=== PATIENT | female | born 1940 | race Caucasian/White ===

== ENCOUNTER 2016-12-15 18:56 | Emergency (ER) | payer OTHER ==
--- NOTE | ~2016-12-15 | EKG ---
PATIENT: ANN GUEVARA UNIT #: [id number] Ventricular Rate: 80 BPM Atrial Rate: 80 BPM P-R Interval: 144 ms QRS Duration: 96 ms Q-T Interval: 382 ms QTC Calculation(Bezet): 440 ms P [place]: 48 degrees Calculated R [place]: -37 degrees Calculated T [place]: 11 degrees Diagnosis Line: Normal sinus rhythm Diagnosis Line: Left axis deviation Diagnosis Line: Moderate voltage criteria for LVH, may be normal Diagnosis Line: variant Diagnosis Line: Abnormal ECG Diagnosis Line: When compared with ECG of 05-SEP-2013 05:57, Diagnosis Line: No significant change was found Diagnosis Line: Confirmed by LINDA MATTHEWS MD ([id number]) on 12/15/2016 Diagnosis Line: 10:50:07 PM INTERPRETING MD: CASSIE CERVANTES
--- NOTE | ~2016-12-15 | CR72 ---
[facility] A Service [facility] RADIOLOGY TEXT RESULTS PATIENT: ANN GUEVARA LOCATION: [facility] : 38 UNIT #: [id number] AGE: [address]: Krysten Dupree MD SEX: F ORDER DR: [id number] [facility] [place], [place] [address] [id number] E MR#: [id number] Acc #: [id number] NAME: ANN GUEVARA. : 1940 SEX: F STUDY DATE/TIME: 12/15/2016 18:36 UNIT: [facility] ROOM: STUDY DESCRIPTION: CR Chest Single View Portable Attending Physician: Krysten Dupree M.D. Ordering Physician: Krysten Dupree M.D. Primary Care Physician: Eliecer Collins M.D. MEDICAL IMAGING REPORT This report is preliminary unless electronic signature is present EXAM Frontal chest. DATE OF EXAM 12/15/2016 INDICATIONS 76-year-old female with weakness, confusion, shortness of air for 2 months. REPORT Frontal chest. COMPARISON Compared with 09/04/2013. FINDINGS Cardiac silhouette is within normal limits. The vascularity is unremarkable. There is old healed granulomatous disease and the lungs are hyperinflated. No pneumothorax. IMPRESSION 1. Pulmonary hyperinflation and old healed granulomatous disease. No definite superimposed active disease. Dictated by... Chencho Muro M.D. THIS IS AN ELECTRONICALLY VERIFIED REPORT Chencho Muro M.D. at 12/16/2016 7:28 AM PILI/tej TD: 12/15/2016 21:05 [facility] A Service [facility] RADIOLOGY TEXT RESULTS PATIENT: ANN GUEVARA LOCATION: [facility] : 38 UNIT #: [id number] AGE: [address]: Krysten Dupree MD SEX: F ORDER DR: JOB #: [id number] MEDICAL IMAGING REPORT Page 1 of 1 COPY
--- NOTE | ~2016-12-15 | CT71 ---
[facility] A Service of [facility] RADIOLOGY TEXT RESULTS PATIENT: ANN GUEVARA LOCATION: [facility] : 38 UNIT #: [id number] AGE: [address]: Krysten Dupree MD SEX: F ORDER DR: [id number] [facility] [address] [facility]. [address] [id number] MR#: [id number] Acc #: [id number] NAME: NAN GUEVARA : 1940 SEX: F STUDY DATE/TIME: 12/15/2016 18:18 UNIT: [facility] ROOM: STUDY DESCRIPTION: CT Head Wo Contrast Attending Physician: Krysten Dupree M.D. Ordering Physician: Krysten Dupree M.D. Primary Care Physician: Eliecer Collins M.D. MEDICAL IMAGING REPORT This report is preliminary unless electronic signature is present EXAM Head CT, no contrast. DATE OF EXAM 12/15/2016 INDICATIONS 76-year-old female with confusion and weakness for [address] brain was performed. NOTE: This CT exam was performed with one or more of the following radiation dose reduction techniques: automatic exposure control, adjustment of mA and/or kV according to patient size, and iterative reconstruction. COMPARISON STUDY Dated 04/24/2014. FINDINGS CT BRAIN: There is generalized cerebral atrophy. Sulci and ventricles are otherwise unremarkable. No midline shift. No evidence of acute intracranial hemorrhage. There is no mass, mass effect or edema to suggest acute infarct and no extraaxial fluid collections are identified. Periventricular white matter changes are present and most characteristic of chronic ischemic small vessel disease. Chronic-appearing lacunar infarcts involve the right caudate nucleus and left caudate nucleus and anterior limb internal capsule on the left. These findings appear chronic. Globes intact. Bones intact. Sinuses clear. IMPRESSION 1. Atrophy and chronic ischemic changes. No clearly acute intracranial process. No evidence of acute intracranial hemorrhage. [facility] A Service [facility] RADIOLOGY TEXT RESULTS PATIENT: ANN GUEVARA LOCATION: [facility] : 38 UNIT #: [id number] AGE: [address]: Krysten Dupree MD SEX: F ORDER DR: Dictated by... Chencho Muro M.D. THIS IS AN ELECTRONICALLY VERIFIED REPORT Chencho Muro M.D. at 12/16/2016 7:28 AM PILI/tej TD: 12/15/2016 21:00 JOB #: [id number] MEDICAL IMAGING REPORT Page 1 of 1 COPY
[2016-12-15 18:04] LABS: BASOPHIL# 0.1 X10e3 (0-0.3); EOSINOPHIL# 0.1 X10e3 (0-0.7); HEMATOCRIT 45.9 % (35.0-45.0); HEMOGLOBIN 15.1 gm/dL (12.0-16.0); LYMPHOCYTE# 1.9 X10e3 (1.0-3.5); MEAN CELL VOLUME 87.2 FL (83-96); MEAN CORPUSCULAR HEMOGLOBIN 28.7 PG (28-34); MEAN CORPUSCULAR HGB CONC 32.9 g/dL (30-36); MEAN PLATELET VOLUME 9.4 FL (6.5-11.5); MONOCYTE# 0.6 X10e3 (0-1.0); MONOCYTE% 8.9 % (3.0-12.0); NEUTROPHIL# 3.8 X10e3 (1.5-7.1); NEUTROPHIL% 60.1 % (40-75); PLATELET COUNT 110 X10e3 (140-420); RED BLOOD COUNT 5.27 X10e (3.90-5.30); RED CELL DISTRIBUTION WIDTH 14.3 % (11.0-15.5); WHITE BLOOD COUNT 6.4 X10e3 (4.0-10.5)
[2016-12-15 18:06] LABS: DIFF IND NO
[2016-12-15 18:15] LABS: PROTHROMBIN TIME (PATIENT) 10.8 SECONDS (9.6-11.5)
[2016-12-15 18:36] LABS: ALBUMIN SERUM 4.6 g/dL (3.5-5.0); BILIRUBIN, DIRECT 0.1 mg/dL (0.0-0.2); BILIRUBIN,INDIRECT 0.8 mg/dL (0.0-0.9); BILIRUBIN,TOTAL 0.9 mg/dL (0.2-2.0); BUN/CREATININE RATIO 17.5; CALCIUM SERUM 9.7 mg/dL (8.4-10.2); CREATININE SERUM 0.8 mg/dL (0.6-1.4); GLOM FILT RATE Estimated 70.7 mL/min (>60); POTASSIUM 3.7 mmol/L (3.5-5.1); PROTEIN TOTAL SERUM 7.2 g/dL (6.0-8.3)
[2016-12-15 18:48] LABS: POC - CKMB 4.6 ng/mL (0.0-7.9); POC - TROPONIN <0.05 ng/mL (<=0.05)
[~2016-12-15 18:56] MED LIST: AGGRENOX; AGGRENOX PO; AGGRENOX1 CAP PO; ALPRAZOLAM; ALPRAZOLAM PO; AMLODIPINE BESYL5 MG PO; APRESOLINE PO; CLONIDINE HCL0.1 MG PO; CRESTOR40 MG PO; DARVOCET-N 1001 TA1 PO; DARVOCET-N 1001 TAB PO; FAMVIR500 MG PO; HCTZ PO; HYDROCHLOROTH12.5 M1 PO; HYDROCODON-ACE1 EAC7 PO; LIPITOR; LISINOPRIL PO; LISINOPRIL20 MG PO; METAMUCIL PO; METOPROLOL SUC100 MG PO; NORVASC PO; PATIENT'S PHARMACY; PHENERGAN PO; PRILOSEC20 MG PO; VITAMIN D50000 UNIT PO; WALGREENS PHARMACY
[2016-12-15 19:33] LABS: URINE SOURCE CLEAN CATCH
[2016-12-15 19:37] LABS: URINE BILIRUBIN NEG (NEG); URINE BLOOD NEG (NEG); URINE COLOR YELLOW; URINE GLUCOSE NEG (NEG); URINE KETONE TRACE (NEG); URINE LEUKOCYTE ESTERASE 2+ (NEG); URINE NITRATE NEG (NEG); URINE PROTEIN NEG (NEG); URINE SPECIFIC GRAVITY 1.017 (1.003-1.035)
[2016-12-15 19:40] LABS: CULTURE INDICATED? YES; URINE BACTERIA AUWI 1+ (NEGATIVE); URINE SQUAMOUS EPITHELIAL CELL FEW /[HPF]
[2016-12-15 19:42] LABS: URINE APPEARANCE CLEAR
[2016-12-15 20:06] LABS: POC - CKMB 4.2 ng/mL (0.0-7.9); POC - TROPONIN <0.05 ng/mL (<=0.05)
== END 2016-12-15 20:58 | disposition home or self-care (01) ==
LOC: CED 18:56
PROVIDERS: Emergency Medicine
DX: R53.1 Weakness (principal); I10 Essential (primary) hypertension; Z88.5 Allergy status to narcotic agent; Z79.899 Other long term (current) drug therapy
CPT/HCPCS: 36415; 70450; 71010; 80048; 80076; 81003; 82553; 82947; 84484; 85025; 85610; 87086; 93005; 99284

== ENCOUNTER 2017-01-21 16:24 | Inpatient (IN) | payer OTHER ==
--- NOTE | ~2017-01-21 | DS ---
Unit #: [id number] #: [id number] Patient: ANN GUEVARA [id number] [address] [address] [id number] I MR#: [id number] NAME: ANN GUEVARA ROOM: 571 Age: 76 Sex: F Admission Date: 01/21/2017 : 1940 Discharge Date: 01/22/2017 Attending Physician: Juliann Daniels M.D. Primary Care Physician: Eliecer Collins M.D. DISCHARGE SUMMARY PRIMARY CARE PROVIDER [place] (1) , A.P.R.N. with [facility]. PRINCIPAL DIAGNOSES 1. Severe hypokalemia, medication induced in combination with poor oral intake. 2. Hypertension, resolved. 3. Mild thrombocytopenia with discharge platelet count of 122,000. 4. Mild vascular dementia. 5. Bradycardia maintained on beta yessi. 6. Hyperlipidemia. 7. Anxiety. 8. History of stroke. CONSULTANTS None. PROCEDURES None. CLINICAL HISTORY AND HOSPITAL COURSE Ms. Guevara is a nice 76-year-old female who presents to the emergency department after abnormal labs were found as an outpatient. In the ER, the patient was found to have a potassium of 1.9. She was subsequently admitted. The patient underwent aggressive oral and IV supplementation potassium and, by the afternoon (1) potassium is up to 3.3. She states her intake at home has been poor and I suspect this is a component of her hypokalemia. However, she is also on HCTZ which I am going to discontinue and blood pressure can be monitored as an outpatient with reinitiation of another antihypertensive medication if necessary. The patient also had some mild bradycardia and beta blockers here have been held. I am going to decrease her dose of metoprolol upon discharge and can be further adjusted by primary care if necessary. The patient is otherwise clinically stable. She has been seen by Physical Therapy who states she is at her baseline and she can be discharged home. DISCHARGE CONDITION Stable. DISCHARGE STATUS Unit #: [id number] #: [id number] Patient: ANN GUEVARA Discharged to home. DISCHARGE MEDICATIONS 1. Depakote 125 mg p.o. t.i.d. 2. Remeron 15 mg at bedtime. 3. Norvasc 10 mg daily. 4. Metoprolol tartrate is going to be discontinued until seen in followup by her primary provider due to her bradycardia. 5. Aricept 5 mg at bedtime. 6. Crestor 40 mg at bedtime. 7. Melatonin 3 mg at bedtime. 8. Vitamin D 50,000 units on Sundays and potassium chloride 20 mEq p.o. daily for two weeks. DISCHARGE INSTRUCTIONS The patient was instructed to follow a regular diet. She can increase her activity as tolerated. FOLLOWUP The patient will follow up with [facility] next week, needs repeat basic metabolic panel at that time. Dictated by... Juliann Daniels M.D. TOMASA/nicolas TD: 01/24/2017 12:44 JOB #: [id number] DISCHARGE SUMMARY Page 1 of 1 X Juliann Daniels MD X DISCHARGE SUMMARY
--- NOTE | ~2017-01-21 | EKG ---
PATIENT: ANN GUEVARA UNIT #: [id number] Ventricular Rate: 58 BPM Atrial Rate: 58 BPM P-R Interval: 160 ms QRS Duration: 108 ms Q-T Interval: 624 ms QTC Calculation(Bezet): 612 ms P [place]: 25 degrees Calculated R [place]: -37 degrees Calculated T [place]: 3 degrees Diagnosis Line: Sinus bradycardia Diagnosis Line: Left axis deviation Diagnosis Line: Left ventricular hypertrophy with repolarization Diagnosis Line: abnormality Diagnosis Line: Prolonged QT Diagnosis Line: Abnormal ECG Diagnosis Line: When compared with ECG of 15-DEC-2016 18:39, Diagnosis Line: ST now depressed in Lateral leads Diagnosis Line: Nonspecific T wave abnormality, worse in Inferior Diagnosis Line: leads Diagnosis Line: T wave amplitude has decreased in Lateral leads Diagnosis Line: QT has lengthened Diagnosis Line: Confirmed by AMA COLLIER MD ([id number]) on Diagnosis Line: 01/24/2017 3:40:25 PM INTERPRETING MD: NANDO CERVANTES
--- NOTE | ~2017-01-21 | HP ---
Unit #: [id number] #: [id number] Patient: ANN GUEVARA [id number] [facility] [address] [facility]. [place], [place] [address] [id number] I MR#: [id number] NAME: ANN GUEVARA ROOM: 571 Age: 76 Sex: F Admission Date: 01/21/2017 : 1940 Attending Physician: Juliann Daniels M.D. Primary Care Physician: Eliecer Collins M.D. HISTORY AND PHYSICAL CHIEF COMPLAINT Migraine with abnormal labs. HISTORY OF PRESENT ILLNESS This is a 76-year-old female with a history of hypertension, dyslipidemia, history of CVA, anxiety, impaired fasting glucose, osteopenia, and mild dementia. She was sent to [facility] emergency room with abnormal labs. [facility] checked the potassium yesterday and it was 2.5 and she was told to go to the emergency room. On arrival to the emergency room she was found to have potassium of 1.9 and she was given KCL IV 1 run times 3 and p.o. 40 and eventually admitted. She said she had some leg cramps, but she denies any complaint. No chest pain. No nausea. No vomiting. No fever. No chills. No cough. No diarrhea. No other complaint. PAST MEDICAL HISTORY 1. Hypertension. 2. Hyperlipidemia. 3. History of CVA. 4. History of anxiety. 5. History of right ovarian cyst. 6. Osteopenia. 7. Impaired fasting glucose. 8. Mild dementia. PAST SURGICAL HISTORY 1. Appendectomy. 2. Cholecystectomy. 3. Carpal tunnel release. 4. Spinal fusion. SOCIAL HISTORY The patient is a nonsmoker. Does not drink alcohol. No illicit drug abuse. FAMILY HISTORY Significant for lung cancer and coronary artery disease in both parents. HOME MEDICATIONS 1. Amlodipine 10 mg daily. 2. Hydrochlorothiazide 12.5 mg daily. 3. Metoprolol succinate 100 mg daily. 4. Crestor 40 mg daily. 5. Depakote 125 mg t.i.d. Unit #: [id number] #: [id number] Patient: ANN GUEVARA 6. Vitamin D 50,000 units q. Tuesday. 7. Aricept 5 mg daily. 8. Remeron 15 mg at bedtime. 9. Melatonin 3 mg at bedtime. REVIEW OF SYSTEMS Negative except as per history of present illness. PHYSICAL EXAMINATION GENERAL: Middle-aged female lying in the bed comfortably. Currently not in any distress. She is alert, awake and oriented times three. VITALS: Currently, temperature 98, heart rate 60, respiratory rate 16, blood pressure 136/70. NECK: Supple. No jugular venous distension. No thyromegaly. No lymphadenopathy. LUNGS: Clear to auscultation. No rhonchi. No wheezing. HEART: S1 and S2. Regular rate and rhythm. ABDOMEN: Soft. Nontender and nondistended. Bowel sounds positive. EXTREMITIES: Inspection normal. No cyanosis, clubbing or edema. NEUROLOGIC: No focal neurologic deficits. DIAGNOSTIC STUDIES LABORATORY: Sodium 135, potassium 1.9, chloride 97, CO2 29, glucose 114, BUN 22, creatinine 1.1. LFTs within normal limits. INR 1.1. White blood cell count 12, hemoglobin 16, hematocrit 27, platelets 145. ASSESSMENT/PLAN 1. Hypokalemia which is replaced. Will check magnesium level. 2. History of hypertension. 3. Dyslipidemia. 4. History of CVA. 5. Anxiety. 6. Dementia. 7. DVT prophylaxis. Will place the patient on Lovenox. Dictated by Claritza Vega M.D. Christ TD: 01/22/2017 06:22 JOB #: [id number] HISTORY AND PHYSICAL Page 1 of 1 X X HISTORY AND PHYSICAL
[2017-01-21] MEDS ORDERED: DEPAKOTE PO (16:31)
[2017-01-21 17:12] LABS: BASOPHIL# 0.1 X10e3 (0-0.3); BASOPHIL% 0.8 % (0-2.5); EOSINOPHIL# 0.3 X10e3 (0-0.7); EOSINOPHIL% 2.7 % (0.0-7.0); HEMATOCRIT 47.7 % (35.0-45.0); HEMOGLOBIN 16.9 gm/dL (12.0-16.0); LYMPHOCYTE# 2.1 X10e3 (1.0-3.5); LYMPHOCYTE% 16.9 % (17.0-45.0); MEAN CELL VOLUME 80.3 FL (83-96); MEAN CORPUSCULAR HEMOGLOBIN 28.5 PG (28-34); MEAN CORPUSCULAR HGB CONC 35.5 g/dL (30-36); MEAN PLATELET VOLUME 10.2 FL (6.5-11.5); MONOCYTE# 1.8 X10e3 (0-1.0); MONOCYTE% 14.9 % (3.0-12.0); NEUTROPHIL% 64.7 % (40-75); PLATELET COUNT 145 X10e3 (140-420); RED BLOOD COUNT 5.94 X10e (3.90-5.30); RED CELL DISTRIBUTION WIDTH 13.8 % (11.0-15.5); WHITE BLOOD COUNT 12.4 X10e3 (4.0-10.5)
[2017-01-21 17:18] LABS: DIFF IND NO
[2017-01-21 17:23] LABS: INR 1.1; PROTHROMBIN TIME (PATIENT) 12.5 SECONDS (9.5-12.4)
[2017-01-21 17:30] LABS: PARTIAL THROMBOPLASTIN TIME 28.6 SECONDS (25.6-38.1)
[2017-01-21 17:33] LABS: ALBUMIN SERUM 3.9 g/dL (3.5-5.0); BILIRUBIN, DIRECT 0.4 mg/dL (0.0-0.2); BILIRUBIN,INDIRECT 0.7 mg/dL (0.0-0.9); BILIRUBIN,TOTAL 1.1 mg/dL (0.2-2.0); CREATININE SERUM 1.1 mg/dL (0.6-1.4); GLOM FILT RATE Estimated 48.1 mL/min (>60); PROTEIN TOTAL SERUM 7.3 g/dL (6.0-8.3)
[2017-01-21 17:34] LABS: POTASSIUM 1.9 mmol/L (3.5-5.1)
[2017-01-21] MEDS ORDERED: ARICEPT5 M1 PO (22:11)
[2017-01-21] MEDS ORDERED: VITAMIN D10000 UNIT IU (22:11)
[2017-01-21] MEDS ORDERED: REMERON PO (22:12)
[2017-01-21] MEDS ORDERED: MELATONIN3 MG PO (22:12)
[2017-01-21 23:45] LABS: CALCIUM SERUM 8.2 mg/dL (8.4-10.2); GLOM FILT RATE Estimated 53.9 mL/min (>60); MAGNESIUM 2.2 mg/dL (1.6-3.0)
[2017-01-21 23:49] LABS: POTASSIUM 2.2 mmol/L (3.5-5.1)
[2017-01-22 05:15] LABS: BASOPHIL# 0.1 X10e3 (0-0.3); BASOPHIL% 0.8 % (0-2.5); DIFF IND NO; EOSINOPHIL# 0.3 X10e3 (0-0.7); EOSINOPHIL% 2.6 % (0.0-7.0); HEMATOCRIT 44.9 % (35.0-45.0); HEMOGLOBIN 15.8 gm/dL (12.0-16.0); LYMPHOCYTE# 1.9 X10e3 (1.0-3.5); LYMPHOCYTE% 18.8 % (17.0-45.0); MEAN CELL VOLUME 81.4 FL (83-96); MEAN CORPUSCULAR HEMOGLOBIN 28.6 PG (28-34); MEAN CORPUSCULAR HGB CONC 35.1 g/dL (30-36); MEAN PLATELET VOLUME 9.2 FL (6.5-11.5); MONOCYTE# 1.5 X10e3 (0-1.0); MONOCYTE% 15.1 % (3.0-12.0); NEUTROPHIL# 6.4 X10e3 (1.5-7.1); NEUTROPHIL% 62.7 % (40-75); PLATELET COUNT 122 X10e3 (140-420); RED BLOOD COUNT 5.51 X10e (3.90-5.30); RED CELL DISTRIBUTION WIDTH 14.3 % (11.0-15.5); WHITE BLOOD COUNT 10.2 X10e3 (4.0-10.5)
[2017-01-22 05:55] LABS: CALCIUM SERUM 8.6 mg/dL (8.4-10.2); CREATININE SERUM 0.8 mg/dL (0.6-1.4); GLOM FILT RATE Estimated 70.7 mL/min (>60); MAGNESIUM 2.2 mg/dL (1.6-3.0)
[2017-01-22 05:58] LABS: POTASSIUM 2.5 mmol/L (3.5-5.1)
[2017-01-22] MEDS ORDERED: POTASSIUM20 MEQ/15 PO (17:41)
== END 2017-01-22 18:04 | disposition home or self-care (01) | DRG 641 ==
LOC: SED 16:24 → C5C 17:58 → SEDOF 17:58 → C5C 21:32 → SEDOF 21:32 → C5C 22:30 → SEDOF 22:30 → C5C 01-22 05:42
PROVIDERS: Emergency Medicine; Internal Medicine
DX: E87.6 Hypokalemia (principal); D69.6 Thrombocytopenia, unspecified; R00.1 Bradycardia, unspecified; I10 Essential (primary) hypertension; F01.50 Vascular dementia, unspecified severity, without behavioral disturbance, psychotic disturbance, mood disturbance, and anxiety; E78.5 Hyperlipidemia, unspecified; F41.9 Anxiety disorder, unspecified; Z86.73 Personal history of transient ischemic attack (TIA), and cerebral infarction without residual deficits; M85.80 Other specified disorders of bone density and structure, unspecified site
CPT/HCPCS: 36415; 80048; 80076; 83735; 84132; 85025; 85610; 85730; 93005; 96365; 97116; 97161; 99285; G8978-GP; G8979-GP; G8980-GP; J1650